=== PATIENT | female | born 1970 | race Caucasian/White ===

== ENCOUNTER 2017-10-11 12:56 | Outpatient (CLI) | payer BC | END 2017-10-11 17:18 | disposition home or self-care (01) | LOC: SMA 12:56 | PROVIDERS: ATTEND Family Medicine | DX: Z12.31 Encounter for screening mammogram for malignant neoplasm of breast (principal); R92.1 Mammographic calcification found on diagnostic imaging of breast | CPT/HCPCS: 77067 ==

== ENCOUNTER 2019-03-27 07:33 | Outpatient (CLI) | payer BC | END 2019-03-27 21:09 | disposition home or self-care (01) | LOC: SMA 07:33 | PROVIDERS: ATTEND Family Medicine | DX: Z12.31 Encounter for screening mammogram for malignant neoplasm of breast (principal) | CPT/HCPCS: 77067 ==

== ENCOUNTER 2020-04-27 08:17 | Outpatient (CLI) | payer BC | END 2020-04-27 19:17 | disposition home or self-care (01) | LOC: SMA 08:17 | PROVIDERS: ATTEND Family Medicine | DX: Z12.39 Encounter for other screening for malignant neoplasm of breast (principal) | CPT/HCPCS: 77067 ==